=== PATIENT | male | born 1985 | race Caucasian/White ===

== ENCOUNTER 2022-12-21 08:58 | Emergency (ER) | payer MEDICARE, MEDICAID, SELFPAY ==
[2022-12-21 09:15] VITALS: BP 131/81; PULSE 77; RESP 18; TEMP 36.3; O2SAT 100
--- NOTE | 2022-12-21 09:39 | ED.SKABFB ---
HPI - Skin/Abscess/Foreign Bdy General Chief complaint: Skin/Abscess/Foreign Body Stated complaint: Rash on skin Time Seen by Provider: 12/21/22 09:24 Source: patient, family (Mother) and RN notes reviewed Mode of arrival: ambulatory Limitations: no limitations History of Present Illness HPI narrative: Mother presents patient today complaining of a rash to his groin, buttocks, and posterior upper legs. Rash has been present for an unknown amount of time, but mother noticed a rash last night when she helped patient shower. Patient denies itching or pain. Patient lives in a long term and has history down syndrome. Mother called long term staff and they state patient did not have the rash yesterday. No [id number] interventions prior to arrival. Related Data Home Medications Medication Instructions Recorded Confirmed ascorbic acid (vitamin C) 250 mg 250 mg DIRECTED 12/21/22 12/21/22 tablet cholecalciferol (vitamin D3) 50 50 mcg DIRECTED 12/21/22 12/21/22 mcg (2,000 unit) capsule fluticasone propionate 50 50 mcg intranasal DIRECTED 12/21/22 12/21/22 mcg/actuation nasal spray,suspension levothyroxine 50 mcg tablet 50 mcg DIRECTED 12/21/22 12/21/22 lidocaine 4 % topical cream 1 applic DIRECTED 12/21/22 12/21/22 montelukast 10 mg tablet 10 mg DIRECTED 12/21/22 12/21/22 naproxen sodium 220 mg tablet 220 mg DIRECTED 12/21/22 12/21/22 venlafaxine 150 mg 150 mg PO DIRECTED 12/21/22 12/21/22 capsule,extended release 24 hr (Effexor XR) Allergies Allergy/AdvReac Type Severity Reaction Status Date / Time cefaclor Allergy Unknown Skin Verified 06/22/17 21:20 Reaction Sulfa (Sulfonamide Allergy Unknown Nausea Verified 06/22/17 21:20 Antibiotics) Review of Systems Review of Systems: CONSTITUTIONAL: Denies body aches, fever, chills, or sweats. EYES: Denies visual changes, redness, or discharge. ENT: Denies rhinorrhea, congestion, sore throat, or otalgia. CARDIOVASCULAR: Denies chest pain, palpitations, or edema. RESPIRATORY: Denies cough or dyspnea. GASTROINTESTINAL: Denies abdominal pain, nausea, vomiting, or diarrhea. GENITOURINARY: Denies dysuria or hematuria. SKIN: + rash MUSCULOSKELETAL: Denies back pain, joint pain, or myalgia. NEUROLOGIC: Denies headache, numbness, tingling, or weakness. PSYCH: Denies depression or anxiety. [facility] Past Medical History Medical History (Updated 12/21/22 @ 09:49 by Rahel Molina, [employer], ) Down syndrome Comments At time of signature, I have reviewed and agree with nursing past medical, surgical, social and family history unless otherwise noted. Please see nursing chart for further information. There is no relevant family history pertinent to the presenting complaint Exam Narrative: GENERAL: Well-appearing, well-nourished, and in no acute distress. HEAD: Normocephalic, atraumatic. EYES: EOMI. No redness or drainage. Conjunctivae normal. ENT: Mucous membranes pink and moist. NECK: Normal AROM. CHEST: No respiratory distress. EXTREMITIES: Normal range of motion. No edema. SKIN: Warm, dry. Capillary refill normal. Normal skin turgor. Widespread scabbed papular rash over the buttock, abdominal fold, groin, and posterior upper legs. No surrounding erythema, induration, drainage noted. NEURO: No focal deficits. Alert and oriented x3. Gait steady. PSYCH: Normal affect. No signs of depression or anxiety. Course Course Level of Care: Express Care Visit Vital Signs Vital signs: Vital Signs Temperature 97.4 F L 12/21/22 09:15 Pulse Rate 77 12/21/22 09:15 Respiratory Rate 18 12/21/22 09:15 Blood Pressure 131/81 12/21/22 09:15 Pulse Oximetry 100 12/21/22 09:15 Oxygen Delivery Room Air 12/21/22 09:15 Temperature 97.4 F L 12/21/22 09:15 Pulse Rate 77 12/21/22 09:15 Respiratory Rate 18 12/21/22 09:15 Blood Pressure 131/81 12/21/22 09:15 Pulse Oximetry 100 12/21/22 09:15 O
== END 2022-12-21 09:56 | disposition home or self-care (01) ==
PROVIDERS: Emergency Provider Nurse Practitioner
DX: L30.9 Dermatitis, unspecified (principal); Q90.9 Down syndrome, unspecified
CPT/HCPCS: 99213; G0463